=== PATIENT | male | born 1985 | race Caucasian/White ===

== ENCOUNTER 2017-06-01 18:23 | Emergency (ER) | payer OTHER ==
[~2017-06-01] VITALS: Ht 180.3 cm; Wt 81.0 kg
[~2017-06-01 18:23] MED LIST: AMOXICILLIN500 MG PO; BACTRIM DS1 TAB PO; CEPHALEXIN500 MG OR; CIPRO500 MG OR; DOXYCYC MONO100 MG OR; E.E.S. 400400 MG OR; FLEXERIL OR; LORTAB 10 OR; LORTAB5 PO; NAPROSYN500 MG OR; NO HOME MEDS; ROBITUSSIN AC OR; TAM75CAP PO; ULTRAM50 M1 OR; ULTRAM50 MG OR; XANAX0.25 MG OR
[2017-06-01] MEDS ORDERED: NAPROSYN500 MG PO (21:47)
[2017-06-01 22:00] VITALS: BP 133/92
== END 2017-06-01 22:03 | disposition home or self-care (01) | DRG 552 ==
LOC: ED 18:23
DX: S13.4XXA Sprain of ligaments of cervical spine, initial encounter (principal); R51 Headache; S23.3XXA Sprain of ligaments of thoracic spine, initial encounter; S33.9XXA Sprain of unspecified parts of lumbar spine and pelvis, initial encounter; V43.52XA Car driver injured in collision with other type car in traffic accident, initial encounter; Y92.488 Other paved roadways as the place of occurrence of the external cause